=== PATIENT | female | born 1960 | race Caucasian/White ===

== ENCOUNTER 2024-01-02 14:08 | Emergency (ER) | payer SELFPAY ==
[~2024-01-02] VITALS: Ht 154.9 cm; Wt 85.3 kg
[2024-01-02 14:25] VITALS: BP_SYST 106; PULSE 102; RESP 19; TEMP 97.3; O2SAT 94
[2024-01-02] MEDS: LIDOCAINE 1% 10 MG/ML, 20 ML MDV INJ ONE (14:59)
[2024-01-02] MEDS ORDERED: CLIN-142 PO (15:21)
[2024-01-02 15:46] VITALS: BP_SYST 102; PULSE 86; RESP 18; TEMP 97.3; O2SAT 96
== END 2024-01-02 15:37 | disposition home or self-care (01) ==
LOC: SED 14:08
DX: L03.011 Cellulitis of right finger (principal); R00.0 Tachycardia, unspecified; E11.9 Type 2 diabetes mellitus without complications; Z79.2 Long term (current) use of antibiotics
CPT/HCPCS: 99284; 10061; J2003